=== PATIENT | female | born 1980 | race Caucasian/White ===

== ENCOUNTER 2022-06-12 18:27 | Emergency (ER) | payer OTHER ==
[~2022-06-12] VITALS: Ht 170.2 cm; Wt 59.1 kg
[2022-06-12 18:53] VITALS: BP 174/118
[2022-06-12] MEDS ORDERED: bacitracin 15gm ointment TP ONE (21:40)
[2022-06-12] MEDS ORDERED: TETanus/Pertussis (Acell)/Diphther VAC/PF (Tdap-Adult) 0.5ml syringe IMVAC ONE (21:40)
== END 2022-06-12 22:14 | disposition home or self-care (01) ==
LOC: EDBD 18:28 → ER 18:28
DX: S62.635A Displaced fracture of distal phalanx of left ring finger, initial encounter for closed fracture (principal); W19.XXXA Unspecified fall, initial encounter; Y93.89 Activity, other specified; Y92.89 Other specified places as the place of occurrence of the external cause; Y99.8 Other external cause status
CPT/HCPCS: 70450; 72100; 73030; 73130; 90471; 90715; 93005; 99284